=== PATIENT | male | born 1950 | race Caucasian/White ===

== ENCOUNTER 2017-11-16 13:00 | Outpatient (CLI) | END 2017-11-16 13:01 | disposition home or self-care (01) | LOC: RHC-LAB 13:00 | PROVIDERS: ATTEND Emergency Medicine | DX: B18.2 Chronic viral hepatitis C (principal); E78.5 Hyperlipidemia, unspecified; Z12.5 Encounter for screening for malignant neoplasm of prostate; M19.90 Unspecified osteoarthritis, unspecified site; Z89.612 Acquired absence of left leg above knee | CPT/HCPCS: 36415; 80053; 80061; 85025 ==

== ENCOUNTER 2017-12-22 08:50 | Inpatient (IN) ==
--- NOTE | 2017-12-22 10:38 | DI ---
EXAM: Two-view chest HISTORY: Shortness of breath COMPARISON: None. FINDINGS: The heart is normal in size. Atherosclerotic changes are seen involving the aortic arch.. There is minimal blunting of the right lateral costophrenic angle with hazy opacity laterally at the right lung base. IMPRESSION: Questionable small right effusion with adjacent atelectasis or developing infiltrate
[2017-12-22 11:02] VITALS: BMI 21.7
[2017-12-22] MEDS: SODIUM CHLORIDE 1,000 ML IV SCH (11:31)
--- NOTE | 2017-12-22 11:37 | CT ---
EXAM: CT abdomen pelvis without contrast HISTORY: Right upper quadrant pain COMPARISON: None TECHNIQUE: CT abdomen pelvis performed without intravenous contrast. Coronal and sagittal reformatt ed images obtained. FINDINGS: Scarring at the lung bases. No free air. Several nondisplaced left rib fractures there ar e probably subacute or chronic. Mild chronic loss of height several vertebral bodies. Liver nodular in contour consistent with cirrhotic configuration. Gallbladder wall thickening. Gallbladder not d istended. No visible gallstones. Pancreas appears normal. Spleen appears normal. Adrenals appear normal. No hydronephrosis or nephrolithiasis. Aorta normal in caliber. Extensive atherosclerosis. Bladder unremarkable. Prostate normal in size. Small hiatal hernia. No dilated loops small bowel. Several loops small bowel suggestion of wall thickening several loops small bowel. Appendix appears normal. Mild colonic diverticulosis. Moderate volume ascites. Paraesophageal varices and recanalize d periumbilical vein. IMPRESSION: 1. Cirrhosis with varices and moderate volume ascites. 2. Nonspecific gallbladder wall thickening. Gallbladder not distended without gallstones. Findings can be correlated with right upper quadrant ultrasound. 3. Suggestion of wall thickening of several loops small bowel may relate to enteritis or reactive ch anges secondary to #1. 4. Extensive atherosclerosis. 5. Small hiatal hernia. 6. Mild colonic diverticulosis. 7. Several nondisplaced left rib fractures there are probably subacute or chronic.
[2017-12-22] MEDS ORDERED: LIDOCAINE HCL 1% SDV IM STA (12:35)
[2017-12-22] MEDS ORDERED: DECADRON 4 MG/ML SDV IVP STA (12:35)
[2017-12-22] MEDS ORDERED: ROCEPHIN IV SCH (13:00)
[2017-12-22] MEDS ORDERED: ROCEPHIN IM SCH (13:00)
--- NOTE | 2017-12-22 13:46 | US ---
EXAM: Right lower extremity venous doppler. HISTORY: Right leg pain and swelling. COMPARISON: None available. TECHNIQUE: Multiple grayscale and color doppler images were obtained. FINDINGS: There is normal flow, compressibility and augmentation of flow within the right common fem oral, greater saphenous, profunda, femoral, popliteal, posterior tibial, anterior tibial and peroneal veins. IMPRESSION: No evidence for right lower extremity deep vein thrombosis at the levels examined.
[2017-12-22] MEDS: DUONEB NEB SCH ×2 (14:04→22:30)
[2017-12-22] MEDS: ROCEPHIN 1 GM in SODIUM CHLORIDE 50 ML IV SCH (14:19)
[2017-12-22] MEDS ORDERED: SOMA PO ONE (14:50)
[2017-12-22] MEDS: SOMA PO SCH (20:28)
[2017-12-23] MEDS: DUONEB NEB SCH ×3 (04:54→21:50)
[2017-12-23] MEDS: ROCEPHIN 1 GM in SODIUM CHLORIDE 50 ML IV SCH (09:05)
[2017-12-23] MEDS: SOMA PO SCH ×2 (10:05→21:10)
--- NOTE | 2017-12-23 11:02 | US ---
EXAM: Right upper quadrant ultrasound HISTORY: Hepatitis C COMPARISON: CT scan abdomen pelvis 12/22/2017 FINDINGS: Real time evaluation of the right upper quadrant structures was performed.. There is a nor mal in size and has a heterogeneous appearance. No focal masses are identified. Antegrade flow is s een within the main portal vein. Ascites is noted within all quadrants. The gallbladder is contract ed with wall thickening in the 5.5 mm range. The common bile duct is normal measuring 3.7 mm. The he ad and body the pancreas are normal The tail is not well visualized. IMPRESSION: Contracted gallbladder with wall thickening without cholelithiasis or bile duct dilatation. Heterogeneous appearing liver. Ascites.
[2017-12-23] MEDS: INFUVITE ADULT 10 ML in SODIUM CHLORIDE 1,000 ML IV SCH (13:04)
[2017-12-23] MEDS: THIAMINE IVP SCH (16:40)
[2017-12-23] MEDS: SODIUM CHLORIDE 1,000 ML IV SCH (16:41)
[2017-12-24] MEDS ORDERED: INFUVITE ADULT IV ONE (01:07)
[2017-12-24] MEDS: INFUVITE ADULT 10 ML in SODIUM CHLORIDE 1,000 ML IV SCH (01:15)
[2017-12-24] MEDS: DUONEB NEB SCH ×3 (04:44→21:50)
[2017-12-24] MEDS: SOMA PO SCH ×2 (09:00→20:45)
[2017-12-24] MEDS: THIAMINE IVP SCH (09:00)
[2017-12-24] MEDS: ROCEPHIN 1 GM in SODIUM CHLORIDE 50 ML IV SCH (09:00)
[2017-12-24] MEDS: ALDACTONE PO SCH (09:09)
--- NOTE | 2017-12-24 15:13 | PN ---
DATE OF SERVICE: 12/23/17 SUBJECTIVE: The patient was admitted from the office for the leg edema and abdominal pain. CT abdomen and pelvis showed the large amount of ascites and thickening of the gallbladder. Venous Doppler was negative yesterday. The patient's WBC was normal and leg edema is better. Still having some abdominal pain. D-Dimer is 1, 902. Urine negative. Toxicology screen positive for medical marijuana. Still complains about some abdominal pain and nausea but no vomiting. Leg edema is better. REVIEW OF SYSTEMS: CONSTITUTIONAL: No fever, no chills. HEENT: Normal. ENDOCRINE: No weight gain, no weight loss. CVS: No angina symptoms. No CHF symptoms. No palpitations. No atypical chest pain for CAD. No shortness of breath. No PND, no orthopnea. RESPIRATORY: No cough, no hemoptysis. GI: No nausea, no vomiting. No abdominal pain. : No hematuria. No polyuria. MUSCULOSKELETAL: No joint swelling. PSYCHIATRIC: Not anxious. No depression. No suicidal thoughts. No homicidal thoughts. SKIN: Intact. No rash. PHYSICAL EXAMINATION: V/S: Blood pressure 143/86, respiratory rate 20, heart rate 72, temperature 98.0 with saturation 96%. HEENT: Normocephalic, atraumatic. Mucosa dry. Pallor positive. No icterus. NECK: Supple. No JVD, no carotid bruit. No lymphadenopathy. LUNGS: Decreased and basilar crackles. Clear to auscultation. No rales or rhonchi. HEART: S1, S2 normal. No S3. No murmur, gallop or regurgitation. ABDOMEN: Distention positive. Right upper quadrant epigastric discomfort. Soft, nontender. Bowel sounds active. No rigidity. No rebound or guarding. No CVA tenderness. EXTREMITIES: No cyanosis, clubbing. 1+ edema. Leg stump has some edema. MUSCULOSKELETAL: No joint swelling. NEUROLOGIC: Awake, alert, oriented times three. No focal deficit. LYMPHATIC: No lymph nodes palpable. SKIN: Intact. LABS: WBC 3.11, hgb 12.0, hct 34.7, plt count 95, sodium 132, potassium 3.9, chloride 99. bicarb 27, BUN 4, creatinine 0.64, glucose 124, Ammonia level 48. ASSESSMENT: 1. Abdominal pain 2. Ascites 3. Liver cirrhosis most like alcoholic liver cirrhosis 4. Uncontrolled hypertension 5. Status post left leg AKA 6. Dyslipidemia 7. Hypertension 8. CAD PLAN: 1. Ultrasound of the right upper quadrant 2. Will get Hepatitis panel 3. Start the patient on the Librium and IV fluids with MVI and Thiamine TIME SPENT: More than 35 minutes MTDD
[2017-12-24] MEDS: LIBRIUM PO PRN (20:45)
[2017-12-25] MEDS: DUONEB NEB SCH ×3 (05:40→22:05)
[2017-12-25] MEDS: THIAMINE IVP SCH (08:17)
[2017-12-25] MEDS: ROCEPHIN 1 GM in SODIUM CHLORIDE 50 ML IV SCH (08:18)
[2017-12-25] MEDS: ALDACTONE PO SCH (08:18)
[2017-12-25] MEDS: SOMA PO SCH ×2 (08:18→20:33)
[2017-12-25] MEDS: LIBRIUM PO PRN (20:33)
[2017-12-26] MEDS: DUONEB NEB SCH ×2 (05:25→13:54)
[2017-12-26] MEDS: ROCEPHIN 1 GM in SODIUM CHLORIDE 50 ML IV SCH (08:12)
[2017-12-26] MEDS: ALDACTONE PO SCH (08:12)
[2017-12-26] MEDS: THIAMINE IVP SCH (08:12)
[2017-12-26] MEDS: SOMA PO SCH (08:13)
[2017-12-26 14:46] VITALS: BP 148/89; TEMP 98.5
--- NOTE | 2017-12-28 10:28 | PN ---
DATE OF SERVICE: 12/24/17 SUBJECTIVE: The patient was admitted with abdominal pain. CT abdomen and pelvis shows the ascites and cholelithiasis. Leg edema is better. No nausea or vomiting. REVIEW OF SYSTEMS: CONSTITUTIONAL: No fever, no chills. HEENT: Normal. ENDOCRINE: No weight gain, no weight loss. CVS: No angina symptoms. No CHF symptoms. No palpitations. No atypical chest pain for CAD. No shortness of breath. No PND, no orthopnea. RESPIRATORY: No cough, no hemoptysis. GI: No nausea, no vomiting. No abdominal pain. : No hematuria. No polyuria. MUSCULOSKELETAL: No joint swelling. PSYCHIATRIC: Not anxious. No depression. No suicidal thoughts. No homicidal thoughts. SKIN: Intact. No rash. PHYSICAL EXAMINATION: V/S: Blood pressure 144/86, respiratory rate 23, heart rate 97, temperature 97.7 with saturation 96%. HEENT: Normocephalic, atraumatic. Mucosa dry. Pallor positive. No icterus. NECK: Supple. No JVD, no carotid bruit. No lymphadenopathy. LUNGS: Decreased and basilar crackles. Clear to auscultation. No rales or rhonchi. HEART: S1, S2 normal. No S3. No murmur, gallop or regurgitation. ABDOMEN: Distention positive. Soft, nontender. Bowel sounds active. No rigidity. No rebound or guarding. No CVA tenderness. Epigastric discomfort is present. EXTREMITIES: No cyanosis, clubbing .1+ edema right lower extremity. Left leg is below knee amputation and the stump is healthy, no edema. MUSCULOSKELETAL: No joint swelling. NEUROLOGIC: Awake, alert, oriented times three. No focal deficit. LYMPHATIC: No lymph nodes palpable. SKIN: Intact. LABS: WBC 3.07, hgb 12.0, hct 35.1, plt count 100. Sodium 134, potassium 3.7, chloride 100, bicarb 26, BUN 4, creatinine 0.60 and glucose 104. ASSESSMENT: 1. Abdominal pain 2. Ascites 3. History of Hepatitic C 4. Liver cirrhosis, hepatitis c and alcoholism 5. Dependant leg edema which is better 6. Status post left below knee amputation 7. DJD spine 8. Osteoarthritis 9. Nicotine use 10.COPD exacerbation secondary to the bronchitis PLAN: 1. Aldactone 25mg Po daily 2. Rocephin 1 gram daily 3. Librium 10mg three times a day 4. Thiamin 5. DUO NEBS 6. Daily I&O's 7. Soma twice a day TIME SPENT: More than 35 minutes MTDD
--- NOTE | 2017-12-28 10:44 | PN ---
DATE OF SERVICE: 12/25/17 SUBJECTIVE: The patient is up and about having some cough, leg edema is better. Abdomen discomfort is present. Urine output has been good 1325 and 2575. Swelling in the legs is better. REVIEW OF SYSTEMS: CONSTITUTIONAL: No fever, no chills. HEENT: Normal. ENDOCRINE: No weight gain, no weight loss. CVS: No angina symptoms. No CHF symptoms. No palpitations. No atypical chest pain for CAD. No shortness of breath. No PND, no orthopnea. RESPIRATORY: No cough, no hemoptysis. GI: No nausea, no vomiting. No abdominal pain. : No hematuria. No polyuria. MUSCULOSKELETAL: No joint swelling. PSYCHIATRIC: Not anxious. No depression. No suicidal thoughts. No homicidal thoughts. SKIN: Intact. No rash. PHYSICAL EXAMINATION: V/S: Blood pressure 134/73, respiratory rate 20, heart rate 83, temperature 98.7 with saturation 96%. HEENT: Normocephalic, atraumatic. Mucosa dry. Pallor positive. No icterus. NECK: Supple. No JVD, no carotid bruit. No lymphadenopathy. LUNGS: Decreased and basilar crackles. Clear to auscultation. No rales or rhonchi. HEART: S1, S2 normal. No S3. No murmur, gallop or regurgitation. ABDOMEN: Distention present. Epigastric discomfort is present. Soft, nontender. Bowel sounds sluggish. No rigidity. No rebound or guarding. No CVA tenderness. EXTREMITIES: No cyanosis, clubbing or pedal edema. Left leg is below knee amputation. Stump is clear. MUSCULOSKELETAL: No joint swelling. NEUROLOGIC: Awake, alert, oriented times three. No focal deficit. LYMPHATIC: No lymph nodes palpable. SKIN: Intact. LABS: Sodium 136, potassium 4.3, chloride 102, bicarb 27, BUN 4, creatinine 0.68, WBC 2.70, hgb 11.7, hct 34.5, plt count 99. ASSESSMENT: 1. Hepatic liver cirrhosis mostly from the Hepatitis C and alcoholism 2. Dependant leg edema which is better 3. COPD exacerbation secondary to the bronchitis 4. Pancytopenia from the liver cirrhosis 5. Thrombocytopenia 6. Status post left below knee amputation PLAN: 1. Continue DUO nebs 2. Rocephin 3. Spirolactone 4. Daily I&O's 5. Out of bed to chair activity as tolerated. 6. Ammonia levels are 48 which was not treated 7. Slightly elevated AST 52 and ALT 27. TIME SPENT: More than 35 minutes MTDD
--- NOTE | 2017-12-28 11:05 | DS ---
DATE OF SERVICE: 12/26/17 FINAL DIAGNOSIS: 1. Abdominal pain from ascites and gastritis 2. Ascites 3. Hepatitis C and alcohol liver cirrhosis 4. Hypertension 5. Chronic hepatitis C 6. Medical marijuana use 7. Osteoarthritis 8. Hiatal hernia 9. History of alcoholism 10.Left foot amputation 1971 11.Left below knee amputation 12.Left rotator cuff repair DISCHARGE INSTRUCTIONS: Discharge the patient home. Advised to abstain from the alcohol. Offer the [employer] and the patient refused to go to them at this time. Wants to try and quit alcohol by himself. NEW PRESCRIPTIONS: Librium 10mg twice a day Continue Soma 350mg twice a day Spirolactone 25mg Po daily DIET INSTRUCTIONS: High protein No salt diet. ACTIVITY: As much as tolerated SMOKING: Current every day smoker DISEASE SPECIFIC EDUCATION: Hepatitic C and Alcohol cirrhosis Risk of liver cancer been discussed with history of Hepatitis C. HOSPITAL COURSE: Christ Ortiz who is a 67 year old male with a history of Hepatitis C came to the office with the swelling in the lower extremities, swelling in the abdomen and been gaining weight with shortness of breath, cough and congestion. At that time the patient was admitted from the office directly for the COPD exacerbation and started on the Rocephin , Solu-Medrol and breathing treatments. Chest x-ray did not show any infiltrates. CT of abdomen and pelvis done which showed the hepatic cirrhosis with slug in the gallbladder. Ultrasound of the gallbladder done which did not show acute cholelithiasis and heterogeneous appearing liver and ascites was seen. At that time the patient was started on the Aldactone and started having the good urine output. Breathing was gradually better and swelling is resolved. Venous ultrasound was done for the DVT which was negative. As the patient was up and about walking doing better the patient being discharged home. TIME SPENT: MORE THAN 65 MINUTES MTDD
== END 2017-12-26 15:50 | disposition home or self-care (01) | DRG 392 ==
LOC: MEDSURG A 08:50
PROVIDERS: ADMIT Emergency Medicine; ATTEND Emergency Medicine
DX: K29.70 Gastritis, unspecified, without bleeding (principal); J44.1 Chronic obstructive pulmonary disease with (acute) exacerbation; J44.0 Chronic obstructive pulmonary disease with (acute) lower respiratory infection; D61.818 Other pancytopenia; K70.31 Alcoholic cirrhosis of liver with ascites; B18.2 Chronic viral hepatitis C; F10.20 Alcohol dependence, uncomplicated; R60.0 Localized edema; I10 Essential (primary) hypertension; J20.9 Acute bronchitis, unspecified; D69.6 Thrombocytopenia, unspecified; I25.10 Atherosclerotic heart disease of native coronary artery without angina pectoris; E78.5 Hyperlipidemia, unspecified; M19.90 Unspecified osteoarthritis, unspecified site; K44.9 Diaphragmatic hernia without obstruction or gangrene; M47.9 Spondylosis, unspecified; Z89.432 Acquired absence of left foot; Z89.512 Acquired absence of left leg below knee; Z79.899 Other long term (current) drug therapy
CPT/HCPCS: 36415; 80053; 80306; 81001; 82140; 82550; 84484; 85025; 85379; 85610; 87493; 93005; 93010; 94640; 97802

== ENCOUNTER 2018-03-17 10:42 | Outpatient (CLI) ==
--- NOTE | 2018-03-17 12:40 | DI ---
EXAM: Three views of the right ankle. History: Right ankle pain. Findings: No acute fracture or dislocation. Diffuse subcutaneous edema. No abnormal calcifications or radiopaque foreign bodies. Mild polyarticular joint space narrowing. Impression: No acute osseous abnormality. Diffuse subcutaneous edema.
--- NOTE | 2018-03-17 12:40 | DI ---
EXAM: Two views of the chest. History: Chest pain. Comparison: Chest radiograph 12/22/2017 Findings: Heart size is normal. No focal consolidation. No appreciable pleural fluid and no pneumo thorax. Peripheral basilar reticular opacities. No acute osseous abnormalities. Impression: Peripheral basilar reticular opacities could represent nonspecific interstitial pneumoni tis or pulmonary fibrosis. Recommend further evaluation with high-resolution chest CT.
== END 2018-03-17 10:43 | disposition home or self-care (01) ==
LOC: RAD 10:42
PROVIDERS: ATTEND Emergency Medicine
DX: R07.81 Pleurodynia (principal); M25.571 Pain in right ankle and joints of right foot

== ENCOUNTER 2018-05-23 13:12 | Outpatient (CLI) | END 2018-05-23 13:13 | disposition home or self-care (01) | LOC: FCC-LAB 13:12 | PROVIDERS: ATTEND Nurse Practitioner Family | DX: B18.2 Chronic viral hepatitis C (principal); I10 Essential (primary) hypertension | CPT/HCPCS: 36415; 80053; 85025 ==

== ENCOUNTER 2018-08-22 13:06 | Outpatient (CLI) | payer OTHER | END 2018-08-22 13:07 | disposition home or self-care (01) | LOC: RHC-LAB 13:06 → FCC-LAB 13:07 | PROVIDERS: ATTEND Nurse Practitioner Family | DX: B18.2 Chronic viral hepatitis C (principal) | CPT/HCPCS: 36415; 80076 ==